=== PATIENT | female | born 1945 | race Asian ===

== ENCOUNTER → 2017-12-09 | Outpatient (CLI) | payer MEDICARE, OTHER | END | disposition home or self-care (01) | LOC: RADPV 11:58 | PROVIDERS: ATTEND Family Medicine | DX: M25.551 Pain in right hip (principal); M25.552 Pain in left hip | CPT/HCPCS: 73521 ==

== ENCOUNTER 2018-07-25 14:43 | Emergency (ER) | payer MEDICARE, OTHER ==
[~2018-07-25] VITALS: Ht 154.9 cm; Wt 59.1 kg
[2018-07-25] MEDS ORDERED: ATOR10TA84 PO (15:12)
[2018-07-25] MEDS ORDERED: GABA-531 PO (15:12)
[2018-07-25] MEDS ORDERED: NORT50CA PO (15:12)
[2018-07-25] MEDS ORDERED: OXYB5 PO (15:12)
[2018-07-25] MEDS ORDERED: AMLO-511 PO (15:12)
[2018-07-25] MEDS ORDERED: LEVO75 PO (15:12)
[2018-07-25 16:15] LABS: BASOPHILS % (AUTO) 1.1 % (0.0-2.0); EOSINOPHILS % (AUTO) 3.7 % (1.0-6.0); HEMATOCRIT 41.5 % (36-46); LYMPHOCYTES # (AUTO) 1.6 K/uL (1.0-4.8); LYMPHOCYTES % (AUTO) 22.4 % (22.0-44.0); MEAN CORPUSCULAR HEMOGLOBIN 28.2 pg (26.0-34.0); MEAN CORPUSCULAR HGB CONC 33.7 G/dL (31.0-37.0); MEAN CORPUSCULAR VOLUME 84 fL (80-100); MONOCYTES # (AUTO) 0.4 K/uL (0.1-1.0); MONOCYTES % (AUTO) 6.1 % (2.0-9.0); NEUTROPHILS # (AUTO) 4.8 K/uL (1.8-7.7); NEUTROPHILS % (AUTO) 66.7 % (40.0-70.0); PLATELET COUNT (AUTO) 398 K/uL (150-450); RED BLOOD CELL COUNT(AUTO) 4.96 MIL/uL (4.00-5.20)
[2018-07-25] MEDS ORDERED: MECLIZINE HCL 25 MG TABLET PO ONE (16:15)
[2018-07-25] MEDS ORDERED: SODIUM CHLORIDE 0.9% 1,000 ML IV ONE (16:15)
[2018-07-25 16:36] LABS: ANION GAP 8 mmol/L (8-16); CALCIUM, TOTAL 9.5 mg/dL (8.8-10.5); CARBON DIOXIDE 27 mmol/L (22-29); CHLORIDE 101 mmol/L (98-107); CREATININE 0.72 mg/dL (0.60-1.30); GLUCOSE,RANDOM 111 mg/dL (70-110); POTASSIUM 3.2 mmol/L (3.5-5.1); SODIUM SERUM 136 mmol/L (136-145); UREA NITROGEN, BLOOD 9 mg/dL (7-18)
[2018-07-25 16:38] LABS: GLOMERULAR FILTR. RATE CALC > 60 mL/min (>60)
[2018-07-25 16:51] LABS: ALANINE AMINOTRANSFERASE 36 U/L (12-78); ALBUMIN 3.5 g/dL (3.4-5.0); ALKALINE PHOSPHATASE 163 U/L (46-116); ASPARTATE AMINOTRANSFERASE 77 U/L (15-37); BILIRUBIN,TOTAL 0.3 mg/dL (0.1-1.0); THYROID STIMULATING HORMONE 3.18 uIU/mL (0.36-3.74); TOTAL PROTEIN, SERUM 8.8 g/dL (6.4-8.2)
[2018-07-25 17:10] LABS: APPEARANCE,URINE CLEAR (CLEAR); BILIRUBIN,URINE NEGATIVE (NEGATIVE); GLUCOSE, URINE (UA) NEGATIVE (NEGATIVE); KETONES,URINE NEGATIVE (NEGATIVE); LEUKOCYTE ESTERASE ,URINE NEGATIVE (NEGATIVE); NITRATE,URINE NEGATIVE (NEGATIVE); OCCULT BLOOD,URINE TRACE (NEGATIVE); PH,URINE 7.5 (5.0-8.0); PROTEIN,URINE NEGATIVE (NEGATIVE); UROBILINOGEN,URINE 0.2 mg/dL (<=1.0)
[2018-07-25 17:21] LABS: BACTERIA,URINE None Seen /HPF (None Seen); RBC,URINE 0-2 /HPF (0-2); SQUAMOUS EPITHELIAL CELL,UR Rare /LPF (None Seen); WBC,URINE None Seen /HPF (0-5)
[2018-07-25] MEDS ORDERED: DIAZEPAM 5 MG TABLET PO ONE (18:45)
[2018-07-25 20:37] VITALS: BP 123/84
== END 2018-07-25 20:38 | disposition home or self-care (01) ==
LOC: EMS 14:43
DX: E78.00 Pure hypercholesterolemia, unspecified (principal); I10 Essential (primary) hypertension; E03.9 Hypothyroidism, unspecified; Z79.899 Other long term (current) drug therapy
CPT/HCPCS: 36415; 70450; 80053; 81001; 84443; 84484; 85025; 93005; 96360; 99284; J7030

== ENCOUNTER 2018-09-04 16:10 | Inpatient (IN) | payer MEDICARE, OTHER ==
[~2018-09-04] VITALS: Ht 157.5 cm; Wt 53.9 kg
[~2018-09-04 16:10] MED LIST: AMLO-511 PO; ATOR10TA84 PO; GABA-531 PO; LEVO75 PO; NORT50CA PO; OXYB5 PO
[2018-09-04 16:56] LABS: BASOPHILS % (AUTO) 1.2 % (0.0-2.0); EOSINOPHILS % (AUTO) 4.7 % (1.0-6.0); HEMATOCRIT 38.5 % (36-46); HEMOGLOBIN 12.7 g/dL (12.0-16.0); LYMPHOCYTES # (AUTO) 1.9 K/uL (1.0-4.8); LYMPHOCYTES % (AUTO) 23.6 % (22.0-44.0); MEAN CORPUSCULAR HEMOGLOBIN 27.5 pg (26.0-34.0); MEAN CORPUSCULAR HGB CONC 32.9 G/dL (31.0-37.0); MEAN CORPUSCULAR VOLUME 84 fL (80-100); MONOCYTES # (AUTO) 0.7 K/uL (0.1-1.0); NEUTROPHILS # (AUTO) 4.9 K/uL (1.8-7.7); NEUTROPHILS % (AUTO) 61.5 % (40.0-70.0); PLATELET COUNT (AUTO) 370 K/uL (150-450); RED CELL DISTRIBUTION WIDTH 14.5 % (11.5-14.5)
[2018-09-04 16:57] LABS: APPEARANCE,URINE CLEAR (CLEAR); BILIRUBIN,URINE NEGATIVE (NEGATIVE); GLUCOSE, URINE (UA) NEGATIVE (NEGATIVE); KETONES,URINE NEGATIVE (NEGATIVE); LEUKOCYTE ESTERASE ,URINE NEGATIVE (NEGATIVE); NITRATE,URINE NEGATIVE (NEGATIVE); OCCULT BLOOD,URINE SMALL (NEGATIVE); PH,URINE 6.5 (5.0-8.0); PROTEIN,URINE NEGATIVE (NEGATIVE); UROBILINOGEN,URINE 0.2 mg/dL (<=1.0)
[2018-09-04 17:04] LABS: CALCIUM, TOTAL 10.1 mg/dL (8.8-10.5); CREATININE 0.95 mg/dL (0.60-1.30); POTASSIUM 3.8 mmol/L (3.5-5.1)
[2018-09-04 17:07] LABS: PROTHROMBIN TIME 10.1 SEC (9.4-11.6)
[2018-09-04 17:26] LABS: BACTERIA,URINE None Seen /HPF (None Seen); RBC,URINE 0-2 /HPF (0-2); WBC,URINE None Seen /HPF (0-5)
[2018-09-04 17:27] LABS: SQUAMOUS EPITHELIAL CELL,UR Few /LPF (None Seen)
[2018-09-04 17:28] LABS: ALBUMIN 3.2 g/dL (3.4-5.0); BILIRUBIN,TOTAL 0.3 mg/dL (0.1-1.0); TOTAL PROTEIN, SERUM 8.4 g/dL (6.4-8.2)
[2018-09-04] MEDS ORDERED: KETOROLAC TROMETHAMINE 30 MG/ML VIAL IVP ONE (17:30)
[2018-09-04] MEDS ORDERED: IOVERSOL 350 MG/ML 100 ML VIAL ONE (19:26)
[2018-09-04] MEDS ORDERED: SODIUM CHLORIDE 0.9% 100 ML ONE (19:26)
[2018-09-04] MEDS ORDERED: ACETAMINOPHEN 325 MG TABLET PO PRN (22:00)
[2018-09-04] MEDS ORDERED: SODIUM CHLORIDE 0.9% 1,000 ML IV ONE (22:00)
[2018-09-04] MEDS ORDERED: 0.9% SODIUM CHLORIDE 10 ML SYRINGE IVP PRN (22:00)
[2018-09-04] MEDS ORDERED: ONDANSETRON HCL 4 MG/2 ML VIAL IVP PRN (22:00)
[2018-09-04 22:48] VITALS: BP 148/86
[2018-09-05] MEDS ORDERED: OxyCODONE HCL/ACETAMINOPHEN 5-325 MG TABLET PO PRN ×2
[2018-09-05] MEDS ORDERED: 0.9% SODIUM CHLORIDE 10 ML SYRINGE IVP PRN
[2018-09-05] MEDS ORDERED: ONDANSETRON HCL 4 MG/2 ML VIAL IVP PRN
[2018-09-05] MEDS ORDERED: MORPHINE SULFATE 2 MG/ML SYRINGE IVP PRN (00:15)
[2018-09-05 04:11] VITALS: BP 131/80
[2018-09-05] MEDS: LEVOTHYROXINE SODIUM 75 MCG TABLET PO SCH (06:14)
[2018-09-05 06:26] LABS: ALANINE AMINOTRANSFERASE 38 U/L (12-78); ALKALINE PHOSPHATASE 209 U/L (46-116); ANION GAP 6 mmol/L (8-16); ASPARTATE AMINOTRANSFERASE 82 U/L (15-37); BILIRUBIN,TOTAL 0.5 mg/dL (0.1-1.0); CALCIUM, TOTAL 8.6 mg/dL (8.8-10.5); CARBON DIOXIDE 29 mmol/L (22-29); CHLORIDE 106 mmol/L (98-107); CREATININE 0.71 mg/dL (0.60-1.30); GLUCOSE,RANDOM 98 mg/dL (70-110); POTASSIUM 3.4 mmol/L (3.5-5.1); SODIUM SERUM 141 mmol/L (136-145); TOTAL PROTEIN, SERUM 7.7 g/dL (6.4-8.2); UREA NITROGEN, BLOOD 10 mg/dL (7-18)
[2018-09-05 07:04] LABS: GLOMERULAR FILTR. RATE CALC > 60 mL/min (>60)
[2018-09-05] MEDS: PANTOPRAZOLE SODIUM 40 MG DR TABLET PO SCH (08:10)
[2018-09-05 08:11] VITALS: BP 126/77
[2018-09-05] MEDS: DOCUSATE SODIUM 100 MG CAPSULE PO SCH ×2 (08:11→20:04)
[2018-09-05] MEDS: HEPARIN SODIUM,PORCINE 5,000 UNITS/ML VIAL SQ SCH ×3 (08:11→20:04)
[2018-09-05 08:15] LABS: EOSINOPHILS % (AUTO) 4.3 % (1.0-6.0); HEMATOCRIT 38.5 % (36-46); HEMOGLOBIN 12.6 g/dL (12.0-16.0); LYMPHOCYTES # (AUTO) 1.4 K/uL (1.0-4.8); MEAN CORPUSCULAR HEMOGLOBIN 27.6 pg (26.0-34.0); MEAN CORPUSCULAR HGB CONC 32.8 G/dL (31.0-37.0); MEAN CORPUSCULAR VOLUME 84 fL (80-100); MONOCYTES # (AUTO) 0.7 K/uL (0.1-1.0); MONOCYTES % (AUTO) 8.1 % (2.0-9.0); NEUTROPHILS # (AUTO) 5.8 K/uL (1.8-7.7); NEUTROPHILS % (AUTO) 69.6 % (40.0-70.0); PLATELET COUNT (AUTO) 349 K/uL (150-450); RED BLOOD CELL COUNT(AUTO) 4.57 MIL/uL (4.00-5.20); RED CELL DISTRIBUTION WIDTH 14.4 % (11.5-14.5)
[2018-09-05] MEDS ORDERED: ATORVASTATIN CALCIUM 10 MG TABLET PO SCH (09:00)
[2018-09-05] MEDS ORDERED: AmLODIPine BESYLATE 5 MG TABLET PO SCH (09:00)
[2018-09-05 11:55] VITALS: BP 125/67
[2018-09-05] MEDS ORDERED: DEXTROSE 5%-0.45% SODIUM CHL 1,000 ML IV ONE (12:45)
[2018-09-05] MEDS ORDERED: POTASSIUM CHLORIDE 10 MEQ ER TABLET PO ONE (14:15)
[2018-09-05 15:59] VITALS: BP 109/61
[2018-09-05] MEDS ORDERED: PEG 3350/NA SULF,BICARB,CL/KCL 4000 ML SOLUTION PO ONE (17:00)
[2018-09-06 00:06] VITALS: BP 140/90
[2018-09-06 04:27] VITALS: BP 118/87
[2018-09-06] MEDS ORDERED: SODIUM CHLORIDE 0.9% 1,000 ML IV ONE (06:00)
[2018-09-06] MEDS: LEVOTHYROXINE SODIUM 75 MCG TABLET PO SCH (06:30)
[2018-09-06] MEDS: PANTOPRAZOLE SODIUM 40 MG DR TABLET PO SCH (09:00)
[2018-09-06] MEDS: DOCUSATE SODIUM 100 MG CAPSULE PO SCH ×2 (09:00→20:10)
[2018-09-06] MEDS: HEPARIN SODIUM,PORCINE 5,000 UNITS/ML VIAL SQ SCH ×3 (09:00→20:12)
[2018-09-06 11:30] VITALS: BP 136/73
[2018-09-06 16:15] VITALS: BP 126/74
[2018-09-06 19:39] VITALS: BP 117/58
[2018-09-07 00:09] VITALS: BP 110/64
[2018-09-07] MEDS ORDERED: MIDAZOLAM HCL 2 MG/2 ML VIAL IVP ONE (00:15)
[2018-09-07] MEDS ORDERED: LIDOCAINE/PF 2% 5 ML VIAL IM ONE (00:15)
[2018-09-07] MEDS ORDERED: PROPOFOL 1% 20 ML VIAL IVP ONE (00:15)
[2018-09-07 04:09] VITALS: BP 111/61
[2018-09-07] MEDS: LEVOTHYROXINE SODIUM 75 MCG TABLET PO SCH (05:59)
[2018-09-07 06:34] LABS: ALANINE AMINOTRANSFERASE 43 U/L (12-78); ALBUMIN 2.8 g/dL (3.4-5.0); ALKALINE PHOSPHATASE 191 U/L (46-116); ANION GAP 8 mmol/L (8-16); ASPARTATE AMINOTRANSFERASE 86 U/L (15-37); BILIRUBIN,TOTAL 0.6 mg/dL (0.1-1.0); CALCIUM, TOTAL 8.8 mg/dL (8.8-10.5); CARBON DIOXIDE 29 mmol/L (22-29); CHLORIDE 104 mmol/L (98-107); CREATININE 0.82 mg/dL (0.60-1.30); GLUCOSE,RANDOM 90 mg/dL (70-110); POTASSIUM 3.1 mmol/L (3.5-5.1); SODIUM SERUM 141 mmol/L (136-145); TOTAL PROTEIN, SERUM 7.2 g/dL (6.4-8.2); UREA NITROGEN, BLOOD 8 mg/dL (7-18)
[2018-09-07 06:35] LABS: GLOMERULAR FILTR. RATE CALC > 60 mL/min (>60)
[2018-09-07 07:35] VITALS: BP 109/68
[2018-09-07] MEDS: HEPARIN SODIUM,PORCINE 5,000 UNITS/ML VIAL SQ SCH (08:47)
[2018-09-07] MEDS: DOCUSATE SODIUM 100 MG CAPSULE PO SCH (08:48)
[2018-09-07] MEDS: PANTOPRAZOLE SODIUM 40 MG DR TABLET PO SCH (08:48)
[2018-09-07 11:45] VITALS: BP 112/67
[2018-09-07] MEDS ORDERED: POTASSIUM CHLORIDE 20 MEQ ER TABLET PO ONE (12:00)
== END 2018-09-07 14:30 | disposition home or self-care (01) | DRG 374 ==
LOC: EMS 16:11 → 5N 22:23 → 4E 09-06 10:30
PROVIDERS: ADMIT Internal Medicine; ATTEND Internal Medicine
PROC: 0DBL8ZX Excision of Transverse Colon, Via Natural or Artificial Opening Endoscopic, Diagnostic (ICD-10-PCS; principal; 2018-09-06 08:00)
DX: C18.9 Malignant neoplasm of colon, unspecified (principal); E43 Unspecified severe protein-calorie malnutrition; C78.7 Secondary malignant neoplasm of liver and intrahepatic bile duct; E78.00 Pure hypercholesterolemia, unspecified; I10 Essential (primary) hypertension; E03.9 Hypothyroidism, unspecified; E87.6 Hypokalemia; E78.5 Hyperlipidemia, unspecified; K44.9 Diaphragmatic hernia without obstruction or gangrene; K59.00 Constipation, unspecified; K64.8 Other hemorrhoids; Z80.49 Family history of malignant neoplasm of other genital organs; Z98.51 Tubal ligation status; Z68.21 Body mass index [BMI] 21.0-21.9, adult; Z79.899 Other long term (current) drug therapy
CPT/HCPCS: 74177; 76700; 82105; 82378; 88305; 93005; 96374; G0378; J1644; J1885; J2250; J2405; J2704; J3490; J7030; J7050

== ENCOUNTER 2018-11-01 14:21 | Emergency (ER) | payer MEDICARE, OTHER ==
[~2018-11-01] VITALS: Ht 157.5 cm; Wt 54.5 kg
[~2018-11-01 14:21] MED LIST changes: -AMLO-511 PO; -GABA-531 PO; -NORT50CA PO; -OXYB5 PO
[2018-11-01 14:50] LABS: BASOPHILS % (AUTO) 0.5 % (0.0-2.0); EOSINOPHILS % (AUTO) 0.3 % (1.0-6.0); HEMATOCRIT 41.2 % (36-46); HEMOGLOBIN 13.7 g/dL (12.0-16.0); LYMPHOCYTES # (AUTO) 0.6 K/uL (1.0-4.8); LYMPHOCYTES % (AUTO) 28.2 % (22.0-44.0); MEAN CORPUSCULAR HEMOGLOBIN 28.7 pg (26.0-34.0); MEAN CORPUSCULAR HGB CONC 33.3 G/dL (31.0-37.0); MEAN CORPUSCULAR VOLUME 86 fL (80-100); MONOCYTES # (AUTO) 0.1 K/uL (0.1-1.0); MONOCYTES % (AUTO) 3.4 % (2.0-9.0); NEUTROPHILS # (AUTO) 1.4 K/uL (1.8-7.7); NEUTROPHILS % (AUTO) 67.6 % (40.0-70.0); PLATELET COUNT (AUTO) 257 K/uL (150-450); RED BLOOD CELL COUNT(AUTO) 4.78 MIL/uL (4.00-5.20); RED CELL DISTRIBUTION WIDTH 18.6 % (11.5-14.5)
[2018-11-01 15:03] LABS: ALANINE AMINOTRANSFERASE 37 U/L (12-78); ALBUMIN 3.6 g/dL (3.4-5.0); ALKALINE PHOSPHATASE 121 U/L (46-116); ANION GAP 12 mmol/L (8-16); ASPARTATE AMINOTRANSFERASE 38 U/L (15-37); BILIRUBIN,TOTAL 0.4 mg/dL (0.1-1.0); CALCIUM, TOTAL 9.5 mg/dL (8.8-10.5); CARBON DIOXIDE 24 mmol/L (22-29); CHLORIDE 104 mmol/L (98-107); CREATININE 0.79 mg/dL (0.60-1.30); GLUCOSE,RANDOM 121 mg/dL (70-110); SODIUM SERUM 140 mmol/L (136-145); TOTAL PROTEIN, SERUM 7.9 g/dL (6.4-8.2); UREA NITROGEN, BLOOD 8 mg/dL (7-18)
[2018-11-01 15:04] LABS: GLOMERULAR FILTR. RATE CALC > 60 mL/min (>60)
[2018-11-01 15:09] LABS: B-TYPE NATRIURETIC PEPTIDE 28 pg/mL (0-100)
[2018-11-01] MEDS ORDERED: POTASSIUM CHLORIDE 20 MEQ ER TABLET PO ONE (15:45)
[2018-11-01 16:08] VITALS: BP 141/87
[2018-11-01 16:22] LABS: PLATELET MORPHOLOGY COMMENT NORMAL
== END 2018-11-01 16:21 | disposition home or self-care (01) ==
LOC: EMS 14:23
DX: T73.3XXA Exhaustion due to excessive exertion, initial encounter (principal); R06.00 Dyspnea, unspecified; M79.10 Myalgia, unspecified site; E78.00 Pure hypercholesterolemia, unspecified; I10 Essential (primary) hypertension; E03.9 Hypothyroidism, unspecified; Z85.038 Personal history of other malignant neoplasm of large intestine; X58.XXXA Exposure to other specified factors, initial encounter
CPT/HCPCS: 93005

== ENCOUNTER 2018-12-20 06:36 | Emergency (ER) | payer MEDICARE, OTHER ==
[~2018-12-20] VITALS: Ht 157.5 cm; Wt 54.5 kg
[2018-12-20 07:32] LABS: BAND NEUTROPHILS % (MANUAL) 0 % (0-5)
[2018-12-20 07:36] LABS: HEMATOCRIT 38.5 % (36-46); HEMOGLOBIN 12.8 g/dL (12.0-16.0); MEAN CORPUSCULAR HEMOGLOBIN 30.3 pg (26.0-34.0); MEAN CORPUSCULAR HGB CONC 33.3 G/dL (31.0-37.0); MEAN CORPUSCULAR VOLUME 91 fL (80-100); PLATELET COUNT (AUTO) 213 K/uL (150-450); RED BLOOD CELL COUNT(AUTO) 4.22 MIL/uL (4.00-5.20); RED CELL DISTRIBUTION WIDTH 18.2 % (11.5-14.5)
[2018-12-20 07:48] LABS: ANION GAP 11 mmol/L (8-16); CALCIUM, TOTAL 9.2 mg/dL (8.8-10.5); CARBON DIOXIDE 25 mmol/L (22-29); CHLORIDE 104 mmol/L (98-107); CREATININE 0.74 mg/dL (0.60-1.30); GLUCOSE,RANDOM 121 mg/dL (70-110); POTASSIUM 3.2 mmol/L (3.5-5.1); SODIUM SERUM 140 mmol/L (136-145); UREA NITROGEN, BLOOD 5 mg/dL (7-18)
[2018-12-20 07:49] LABS: GLOMERULAR FILTR. RATE CALC > 60 mL/min (>60)
[2018-12-20 07:56] LABS: ALANINE AMINOTRANSFERASE 32 U/L (12-78); ALBUMIN 3.3 g/dL (3.4-5.0); ALKALINE PHOSPHATASE 107 U/L (46-116); ASPARTATE AMINOTRANSFERASE 38 U/L (15-37); BILIRUBIN,TOTAL 0.4 mg/dL (0.1-1.0); TOTAL PROTEIN, SERUM 7.2 g/dL (6.4-8.2)
[2018-12-20] MEDS ORDERED: POTASSIUM CHLORIDE 20 MEQ ER TABLET PO ONE (08:15)
[2018-12-20 08:31] LABS: BASOPHILS % (MANUAL) 1 % (0-2); EOSINOPHILS % (MANUAL) 1 % (1-6); LYMPHOCYTES % (MANUAL) 26 % (22-44); MONOCYTES % (MANUAL) 5 % (2-9); SEGMENTED NEUTROPHILS % 67 % (40-70)
[2018-12-20] MEDS ORDERED: POLYMYXIN B/TRIMETHOPRIM 10 ML OPHTHALMIC SOLUTION OU ONE (09:45)
[2018-12-20 09:54] VITALS: BP 105/80
== END 2018-12-20 10:00 | disposition home or self-care (01) ==
LOC: EMS 06:36
DX: H10.9 Unspecified conjunctivitis (principal); R05 Cough; E78.00 Pure hypercholesterolemia, unspecified; I10 Essential (primary) hypertension; E03.9 Hypothyroidism, unspecified; Z85.038 Personal history of other malignant neoplasm of large intestine
CPT/HCPCS: 85007

== ENCOUNTER → 2019-02-13 | Outpatient (CLI) | payer MEDICARE, OTHER ==
[~2019-02-13] MED LIST changes: +IOVERSOL 350 MG/ML 100 ML VIAL ONE; +SODIUM CHLORIDE 0.9% 100 ML ONE
== END | disposition home or self-care (01) ==
LOC: RADMN 08:44
PROVIDERS: ATTEND Internal Medicine Hematology & Oncology
DX: C78.7 Secondary malignant neoplasm of liver and intrahepatic bile duct (principal); K76.9 Liver disease, unspecified; I70.0 Atherosclerosis of aorta; I51.7 Cardiomegaly; K44.9 Diaphragmatic hernia without obstruction or gangrene; I82.890 Acute embolism and thrombosis of other specified veins; R16.0 Hepatomegaly, not elsewhere classified
CPT/HCPCS: 71260; 74177; J7050; Q9967; 72193; 74160

== ENCOUNTER → 2019-05-31 | Outpatient (CLI) | payer MEDICARE, OTHER | END | disposition home or self-care (01) | LOC: RADMN 08:44 | PROVIDERS: ATTEND Internal Medicine Hematology & Oncology | DX: C78.7 Secondary malignant neoplasm of liver and intrahepatic bile duct (principal); I25.10 Atherosclerotic heart disease of native coronary artery without angina pectoris; K80.20 Calculus of gallbladder without cholecystitis without obstruction | CPT/HCPCS: 71260; 72193; 74160; J7050; Q9967 ==

== ENCOUNTER 2019-07-07 22:38 | Emergency (ER) | payer MEDICARE, OTHER ==
[~2019-07-07] VITALS: Ht 157.5 cm; Wt 54.5 kg
[~2019-07-07 22:38] MED LIST changes: -IOVERSOL 350 MG/ML 100 ML VIAL ONE; -SODIUM CHLORIDE 0.9% 100 ML ONE
[2019-07-07] MEDS ORDERED: AMLO10TA7 PO (22:53)
[2019-07-07 23:06] LABS: BASOPHILS % (AUTO) 0.4 % (0.0-2.0); EOSINOPHILS % (AUTO) 1.5 % (1.0-6.0); HEMATOCRIT 41.8 % (36-46); HEMOGLOBIN 14.2 g/dL (12.0-16.0); LYMPHOCYTES # (AUTO) 1.3 K/uL (1.0-4.8); LYMPHOCYTES % (AUTO) 27.8 % (22.0-44.0); MEAN CORPUSCULAR HEMOGLOBIN 31.6 pg (26.0-34.0); MEAN CORPUSCULAR VOLUME 93 fL (80-100); MONOCYTES # (AUTO) 0.2 K/uL (0.1-1.0); MONOCYTES % (AUTO) 3.8 % (2.0-9.0); NEUTROPHILS # (AUTO) 3.2 K/uL (1.8-7.7); NEUTROPHILS % (AUTO) 66.5 % (40.0-70.0); PLATELET COUNT (AUTO) 162 K/uL (150-450); RED BLOOD CELL COUNT(AUTO) 4.49 MIL/uL (4.00-5.20); RED CELL DISTRIBUTION WIDTH 14.6 % (11.5-14.5)
[2019-07-07 23:16] LABS: ANION GAP 7 mmol/L (8-16); CALCIUM, TOTAL 9.1 mg/dL (8.8-10.5); CARBON DIOXIDE 29 mmol/L (22-29); CHLORIDE 105 mmol/L (98-107); CREATININE 0.71 mg/dL (0.60-1.30); GLOMERULAR FILTR. RATE CALC > 60 mL/min (>60); GLUCOSE,RANDOM 106 mg/dL (70-110); SODIUM SERUM 141 mmol/L (136-145); UREA NITROGEN, BLOOD 14 mg/dL (7-18)
[2019-07-07 23:22] LABS: ALANINE AMINOTRANSFERASE 115 U/L (12-78); ALBUMIN 3.4 g/dL (3.4-5.0); ALKALINE PHOSPHATASE 136 U/L (46-116); ASPARTATE AMINOTRANSFERASE 186 U/L (15-37); BILIRUBIN,TOTAL 0.5 mg/dL (0.1-1.0); TOTAL PROTEIN, SERUM 7.2 g/dL (6.4-8.2)
[2019-07-08] MEDS ORDERED: POTASSIUM CHLORIDE 20 MEQ ER TABLET PO ONE (00:45)
[2019-07-08 00:49] LABS: LIPASE 299 U/L (73-393)
[2019-07-08] MEDS ORDERED: KETOROLAC TROMETHAMINE 30 MG/ML VIAL IVP ONE (01:00)
[2019-07-08 02:15] VITALS: BP 116/84
== END 2019-07-08 03:15 | disposition home or self-care (01) ==
LOC: EMS 22:39
DX: E87.6 Hypokalemia (principal); R10.13 Epigastric pain; C18.9 Malignant neoplasm of colon, unspecified; I10 Essential (primary) hypertension; E78.00 Pure hypercholesterolemia, unspecified; E03.9 Hypothyroidism, unspecified; Z79.899 Other long term (current) drug therapy
CPT/HCPCS: 36415; 71045; 76705; 80053; 83690; 83735; 84484; 85025; 93005; 96374; 99285; J1885

== ENCOUNTER → 2019-07-28 | Outpatient (CLI) | payer MEDICARE, OTHER ==
[~2019-07-28] MED LIST changes: +AMLO10TA7 PO; +IOVERSOL 350 MG/ML 100 ML VIAL ONE; +SODIUM CHLORIDE 0.9% 100 ML ONE
== END | disposition home or self-care (01) ==
LOC: RADMN 08:14
PROVIDERS: ATTEND Internal Medicine Hematology & Oncology
DX: R91.1 Solitary pulmonary nodule (principal); K76.9 Liver disease, unspecified; C78.7 Secondary malignant neoplasm of liver and intrahepatic bile duct; K44.9 Diaphragmatic hernia without obstruction or gangrene; K80.80 Other cholelithiasis without obstruction; I51.7 Cardiomegaly; I28.8 Other diseases of pulmonary vessels; J47.9 Bronchiectasis, uncomplicated; M47.897 Other spondylosis, lumbosacral region; I70.0 Atherosclerosis of aorta
CPT/HCPCS: 71260; 72193; 74160; J7050; Q9967

== ENCOUNTER → 2019-11-30 | Outpatient (CLI) | payer MEDICARE, OTHER ==
[~2019-11-30] MED LIST changes: +AMLO-258 PO; -AMLO10TA7 PO; -IOVERSOL 350 MG/ML 100 ML VIAL ONE; +IOVERSOL 350 MG/ML 150 ML VIAL ONE
== END | disposition home or self-care (01) ==
LOC: RADMN 08:35
PROVIDERS: ATTEND Internal Medicine Hematology & Oncology
DX: K76.0 Fatty (change of) liver, not elsewhere classified (principal); C78.7 Secondary malignant neoplasm of liver and intrahepatic bile duct; I51.7 Cardiomegaly; J98.11 Atelectasis; R91.1 Solitary pulmonary nodule; K76.9 Liver disease, unspecified; K80.80 Other cholelithiasis without obstruction; N28.1 Cyst of kidney, acquired; K44.9 Diaphragmatic hernia without obstruction or gangrene; I70.0 Atherosclerosis of aorta; M47.815 Spondylosis without myelopathy or radiculopathy, thoracolumbar region; M47.818 Spondylosis without myelopathy or radiculopathy, sacral and sacrococcygeal region; I27.21 Secondary pulmonary arterial hypertension
CPT/HCPCS: 71260; 72193; 74160; J7050; Q9967

== ENCOUNTER 2019-12-26 10:59 | Emergency (ER) | payer MEDICARE, OTHER ==
[~2019-12-26] VITALS: Ht 157.5 cm; Wt 56.8 kg
[~2019-12-26 10:59] MED LIST changes: -IOVERSOL 350 MG/ML 150 ML VIAL ONE; -SODIUM CHLORIDE 0.9% 100 ML ONE
[2019-12-26] MEDS ORDERED: MORPHINE SULFATE 4 MG/ML SYRINGE IVP ONE (12:00)
[2019-12-26] MEDS ORDERED: ONDANSETRON HCL 4 MG/2 ML VIAL IVP ONE (12:00)
[2019-12-26 12:29] LABS: BASOPHILS % (AUTO) 0.6 % (0.0-2.0); EOSINOPHILS % (AUTO) 0.2 % (1.0-6.0); HEMATOCRIT 41.3 % (36-46); LYMPHOCYTES # (AUTO) 1.6 K/uL (1.0-4.8); LYMPHOCYTES % (AUTO) 17.2 % (22.0-44.0); MEAN CORPUSCULAR HEMOGLOBIN 29.9 pg (26.0-34.0); MEAN CORPUSCULAR HGB CONC 33.8 G/dL (31.0-37.0); MEAN CORPUSCULAR VOLUME 88 fL (80-100); MONOCYTES # (AUTO) 0.7 K/uL (0.1-1.0); MONOCYTES % (AUTO) 7.2 % (2.0-9.0); NEUTROPHILS % (AUTO) 74.8 % (40.0-70.0); PLATELET COUNT (AUTO) 190 K/uL (150-450); RED BLOOD CELL COUNT(AUTO) 4.68 MIL/uL (4.00-5.20); RED CELL DISTRIBUTION WIDTH 14.4 % (11.5-14.5)
[2019-12-26 12:38] LABS: CALCIUM, TOTAL 9.1 mg/dL (8.8-10.5); CREATININE 0.98 mg/dL (0.60-1.30); POTASSIUM 3.5 mmol/L (3.5-5.1)
[2019-12-26 12:44] LABS: ALBUMIN 3.7 g/dL (3.4-5.0); BILIRUBIN,TOTAL 1.3 mg/dL (0.1-1.0)
[2019-12-26 13:11] VITALS: BP 137/77
== END 2019-12-26 13:39 | disposition home or self-care (01) ==
LOC: EMS 11:05
DX: C18.9 Malignant neoplasm of colon, unspecified (principal); E78.00 Pure hypercholesterolemia, unspecified; I10 Essential (primary) hypertension; E03.9 Hypothyroidism, unspecified; Z79.899 Other long term (current) drug therapy
CPT/HCPCS: 36415; 71045; 80053; 83690; 84484; 85025; 93005; 96374; 96375; 99285; J2270; J2405

== ENCOUNTER → 2020-04-16 | Outpatient (CLI) | payer MEDICARE, OTHER ==
[~2020-04-16] MED LIST changes: +IOVERSOL 350 MG/ML 100 ML VIAL ONE; +SODIUM CHLORIDE 0.9% 100 ML ONE
== END | disposition home or self-care (01) ==
LOC: RADMN 08:34
PROVIDERS: ATTEND Internal Medicine Hematology & Oncology
DX: C78.7 Secondary malignant neoplasm of liver and intrahepatic bile duct (principal); R91.8 Other nonspecific abnormal finding of lung field
CPT/HCPCS: 71260; 72193; 74160; J7050; Q9967

== ENCOUNTER → 2020-10-15 | Outpatient (CLI) | payer MEDICARE, OTHER ==
[~2020-10-15] MED LIST changes: +BARIUM SULFATE 0.1% SUSPENSION 450 ML BOTTLE ONE; +IOHEXOL 350 MG/ML 100 ML VIAL ONE; -IOVERSOL 350 MG/ML 100 ML VIAL ONE
== END | disposition home or self-care (01) ==
LOC: RADMN 09:03
PROVIDERS: ATTEND Internal Medicine Hematology & Oncology
DX: C78.7 Secondary malignant neoplasm of liver and intrahepatic bile duct (principal); I67.2 Cerebral atherosclerosis; I65.23 Occlusion and stenosis of bilateral carotid arteries; I67.89 Other cerebrovascular disease; R91.1 Solitary pulmonary nodule; I70.0 Atherosclerosis of aorta; M47.815 Spondylosis without myelopathy or radiculopathy, thoracolumbar region
CPT/HCPCS: 70470; 71260; 72193; 74160; A9575; J7050

== ENCOUNTER → 2021-07-29 | Outpatient (CLI) | payer MEDICARE, OTHER | END | disposition home or self-care (01) | LOC: RADMN 08:35 | PROVIDERS: ATTEND Internal Medicine Hematology & Oncology | DX: C78.7 Secondary malignant neoplasm of liver and intrahepatic bile duct (principal); R91.8 Other nonspecific abnormal finding of lung field; R59.0 Localized enlarged lymph nodes; R93.89 Abnormal findings on diagnostic imaging of other specified body structures; M47.816 Spondylosis without myelopathy or radiculopathy, lumbar region | CPT/HCPCS: 71260; 72193; 74160; J7050; Q9967 ==

== ENCOUNTER → 2021-12-02 | Outpatient (CLI) | payer MEDICARE, OTHER ==
[~2021-12-02] MED LIST changes: -IOHEXOL 350 MG/ML 100 ML VIAL ONE; +IOHEXOL 350 MG/ML 150 ML VIAL ONE
== END | disposition home or self-care (01) ==
LOC: RADMN 08:42
PROVIDERS: ATTEND Internal Medicine Hematology & Oncology
DX: K83.8 Other specified diseases of biliary tract (principal); R91.1 Solitary pulmonary nodule; I70.0 Atherosclerosis of aorta; R59.0 Localized enlarged lymph nodes; R16.0 Hepatomegaly, not elsewhere classified; N85.8 Other specified noninflammatory disorders of uterus; C78.7 Secondary malignant neoplasm of liver and intrahepatic bile duct
CPT/HCPCS: 71260; 74160; 72193; Q9967; J7050

== ENCOUNTER 2022-01-27 10:27 | Emergency (ER) | payer MEDICARE, OTHER ==
[~2022-01-27] VITALS: Ht 157.5 cm; Wt 63.6 kg
[~2022-01-27 10:27] MED LIST changes: -BARIUM SULFATE 0.1% SUSPENSION 450 ML BOTTLE ONE; -IOHEXOL 350 MG/ML 150 ML VIAL ONE; -SODIUM CHLORIDE 0.9% 100 ML ONE
[2022-01-27] MEDS ORDERED: TRIF1TAB PO (13:17)
[2022-01-27 13:33] LABS: B-TYPE NATRIURETIC PEPTIDE 66 pg/mL (0-100)
[2022-01-27 13:34] LABS: ANION GAP 9 mmol/L (8-16); CALCIUM, TOTAL 8.9 mg/dL (8.8-10.5); CARBON DIOXIDE 25 mmol/L (22-29); CHLORIDE 107 mmol/L (98-107); CREATININE 0.67 mg/dL (0.60-1.30); GLOMERULAR FILTR. RATE CALC > 60 mL/min (>60); GLUCOSE,RANDOM 108 mg/dL (70-110); POTASSIUM 3.7 mmol/L (3.5-5.1); SODIUM SERUM 141 mmol/L (136-145); UREA NITROGEN, BLOOD 10 mg/dL (7-18)
[2022-01-27 13:36] LABS: PROTHROMBIN TIME 11.1 SEC (9.4-11.6)
[2022-01-27 13:39] LABS: HEMATOCRIT 26.6 % (36-46); HEMOGLOBIN 9.1 g/dL (12.0-16.0); MEAN CORPUSCULAR HEMOGLOBIN 33.9 pg (26.0-34.0); MEAN CORPUSCULAR HGB CONC 34.2 G/dL (31.0-37.0); MEAN CORPUSCULAR VOLUME 99 fL (80-100); RED BLOOD CELL COUNT(AUTO) 2.69 MIL/uL (4.00-5.20); RED CELL DISTRIBUTION WIDTH 16.4 % (11.5-14.5)
[2022-01-27 13:40] LABS: ALANINE AMINOTRANSFERASE 22 U/L (12-78); ALBUMIN 3.6 g/dL (3.4-5.0); ALKALINE PHOSPHATASE 141 U/L (46-116); ASPARTATE AMINOTRANSFERASE 34 U/L (15-37); BILIRUBIN,TOTAL 0.8 mg/dL (0.1-1.0); CREATINE KINASE, TOTAL ONLY 66 U/L (26-192); TOTAL PROTEIN, SERUM 7.7 g/dL (6.4-8.2)
[2022-01-27 14:06] LABS: PLATELET COUNT (AUTO) 38 K/uL (150-450)
[2022-01-27 14:08] LABS: BAND NEUTROPHILS % (MANUAL) 2 % (0-5); LYMPHOCYTES % (MANUAL) 57 % (22-44); SEGMENTED NEUTROPHILS % 41 % (40-70)
[2022-01-27] MEDS ORDERED: GABA-1181 PO (14:32)
[2022-01-27] MEDS ORDERED: AMLO5TAB66 PO (14:32)
[2022-01-27] MEDS: MECLIZINE HCL 25 MG TABLET PO ONE (14:49)
[2022-01-27 15:07] VITALS: BP 141/74
[2022-01-27] MEDS ORDERED: MECL-134 PO (15:45)
== END 2022-01-27 16:13 | disposition home or self-care (01) ==
LOC: EMS 10:30
DX: R42 Dizziness and giddiness (principal); D64.9 Anemia, unspecified; D69.6 Thrombocytopenia, unspecified; D72.819 Decreased white blood cell count, unspecified; E78.00 Pure hypercholesterolemia, unspecified; I10 Essential (primary) hypertension; E03.9 Hypothyroidism, unspecified; Z86.69 Personal history of other diseases of the nervous system and sense organs; Z85.038 Personal history of other malignant neoplasm of large intestine
CPT/HCPCS: 70450; 71045; 80053; 82550; 83880; 84484; 85025; 85610; 85730; 93005; 99285; 36415-L1; 36415-TC

== ENCOUNTER → 2022-04-30 | Outpatient (CLI) | payer MEDICARE, OTHER ==
[~2022-04-30] MED LIST changes: -AMLO-258 PO; +AMLO5TAB66 PO; +ATOR10TA PO; -ATOR10TA84 PO; +GABA-1181 PO; +IOHEXOL 350 MG/ML 100 ML VIAL ONE; +MECL-134 PO; +SODIUM CHLORIDE 0.9% 100 ML ONE; +TRIF1TAB PO
== END | disposition home or self-care (01) ==
LOC: RADMN 08:35
PROVIDERS: ATTEND Internal Medicine Hematology & Oncology
DX: R16.0 Hepatomegaly, not elsewhere classified (principal); R59.0 Localized enlarged lymph nodes; I51.7 Cardiomegaly; C78.7 Secondary malignant neoplasm of liver and intrahepatic bile duct
CPT/HCPCS: 71260; 74160; 72193; Q9967; J7050